=== PATIENT | male | born 1930 | race Caucasian/White ===

== ENCOUNTER 2018-11-18 19:53 | Emergency (ER) | payer MEDICARE ==
--- NOTE | 2018-11-18 20:25 | ED ---
Lower Extremity - HPI Summary HPI Summary: 88 yo male presents to [facility] ED accompanied by his and son. Pt tells me that he has been having right knee pain for the last few weeks. About 3 weeks ago his right knee buckled and "gave out" on him and he fell onto his knees - this increased his pain. Today around 1700 he was walking and felt his knee buckle again - did not fall, but has had pain since that time. He states that he is unable to weight bear or ambulate. Prior to this injury, he was ambulatory without an assisting device. He has not taken anything OTC for his discomfort. He does have an extensive history with his right knee - including several surgical repairs requiring plates and screws to his proximal tibia. He denies numbness or tingling. His states he does not take any daily medications. - History of Current Complaint Chief Complaint: EDExtremityLower Stated Complaint: FELL AND KNEE POPPED OUT PER PT Time Seen by Provider: 11/18/18 20:25 Hx Obtained From: Patient Severity Initially: Mild Severity Currently: Mild Pain Intensity: 3 Pain Scale Used: 0-10 Numeric - Allergies/Home Medications Allergies/Adverse Reactions: Allergies Allergy/AdvReac Type Severity Reaction Status Date / Time No Known Allergies Allergy Verified 11/18/18 20:02 PMH/Surg Hx/FS Hx/Imm Hx Endocrine/Hematology History: Denies: Hx Anticoagulant Therapy, Hx Diabetes Cardiovascular History: Denies: Hx Angina, Hx Atrial Fibrillation, Hx Hypertension Respiratory History: Denies: Hx Asthma, Hx Chronic Obstructive Pulmonary Disease (COPD) History: Denies: Hx Dialysis Musculoskeletal History: Reports: Hx Orthopedic Injury - right knee, crushed heel, broken ankle, Other Musculoskeletal History - right knee, right ankle and right heel fx's Sensory History: Reports: Hx Contacts or Glasses - does not like to wear, reading glasses, Hx Hearing Aid - bilateral Opthamlomology History: Reports: Hx Contacts or Glasses - does not like to wear , reading glasses Neurological History: Denies: Hx CVA, Hx Headaches, Hx Migraine - Surgical History Surgical History: Yes Surgery Procedure, Year, and Place: 15 years ago Right knee surgery. 1984 right crushed heal. 1999 right ankle Hx Anesthesia Reactions: No Infectious Disease History: No Infectious Disease History: Denies: Traveled Outside the [place] in Last 30 Days - Family History Known Family History: Positive: Unknown - Social History Lives: With Family Alcohol Use: Rare Substance Use Type: Reports: None Smoking Status (MU): Former Smoker Review of Systems Constitutional: Negative Cardiovascular: Negative Respiratory: Negative Gastrointestinal: Negative Genitourinary: Negative Musculoskeletal: Other - Right knee pain Skin: Negative Neurological: Negative Psychological: Normal All Other Systems Reviewed And Are Negative: No Physical Exam - Summary Physical Exam Summary: GENERAL: NAD. WDWN. No pain distress. SKIN: No rashes, sores, or open wounds. HEENT: Head: AT/NC Eyes: PERRLA. EOM intact. NECK: Supple. Nontender. No lymphadenopathy. CHEST: CTAB. No r/r/w. No accessory muscle use. Breathing comfortably and in no distress. CV: ?PVCs. Pulses intact. Brisk cap refill. MSK: RIGHT KNEE: Mild edema and chronic bony changes. NTTP. Keeps knee in ~ 10deg of extension due to pain. He is unable to flex due to pain. Patella and quad tendon appear intact NEURO: Alert. PSYCH: Age appropriate behavior. Triage Information Reviewed: Yes Vital Signs On Initial Exam: Initial Vitals Temp Pulse Resp BP Pulse Ox 98.6 F 108 20 126/85 95 11/18/18 19:55 11/18/18 19:55 11/18/18 19:55 11/18/18 19:55 11/18/18 19:55 Vital Signs Reviewed: Yes Diagnostics - Vital Signs Vital Signs Temp Pulse Resp BP Pulse Ox 11/18/18 19:55 98.6 F 108 20 126/85 95 - Laboratory Lab Statement: Any lab studies that have been ordered have been reviewed, and results considered in the medical decision making process. - Radiology XR knee Radiology Interpretation Completed By: Radiologist Summary of Radiographic Findings: IMPRESSION: 1. Patient is again status post ORIF of remote proximal tibial fracture. 2. No acute findings. However, the bones are diffusely demineralized which limits evaluation of fine bony detail. 3. 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 4. Small joint effusion. XR right hip Radiology Interpretation Completed By: ED Physician Summary of Radiographic Findings: No acute findings XR right femur Radiology Interpretation Completed By: ED Physician Summary of Radiographic Findings: No acute findings - EKG 1 EKG Comparison: Other - Sinus tach 123. Atrial premature complex. RBBB. Compared to 05/2014. No STEMI. Read by Dr. Mallory Lower Extremity Course/Dx - Course Course Of Treatment: XRs as above. Suspect acute on chronic knee pain. Pt will be placed in a knee immobilizer and he has a walker at home - advised to use this with immobilizer and RICE. F/u with Orthopedics within the next 5 days for a recheck. Return to ED if symptoms worsen. - Diagnoses Provider Diagnoses: Right knee pain Discharge ED - Sign-Out/Discharge Documenting (check all that apply): Patient Departure Patient Received Moderate/Deep Sedation with Procedure: No - Discharge Plan Condition: Stable Disposition: HOME Patient Education Materials: Knee Pain (ED) Referrals: Addy KRISHNAMURTHY,Ronn Molina [Primary Care Provider] - Roxy Gates MD [Medical Doctor] - As Soon As Possible Additional Instructions: If you develop a fever, shortness of breath, chest pain, new or worsening symptoms - please call your PCP or go to the ED immediately. The X-Rays of your knee, hip, and thigh did not show any fractures or acute processes tonight. I recommend that you call Orthopedics at the number below to schedule an appointment within 3-5 days for a recheck of your worsening knee pain. Use the knee immobilizer as needed for discomfort Use your walker to ambulate until you can see Orthopedics May take tylenol as directed for discomfort - Billing Disposition and Condition Condition: STABLE Disposition: Home - Attestation Statements Provider Attestation: I was available for consult. This patient was seen by the NANI. The patient was not presented to, seen by, or examined by me. Keny Mallory MD
[2018-11-18 23:11] VITALS: BP 138/94
== END 2018-11-18 23:10 | disposition home or self-care (01) ==
LOC: ED 19:53
DX: M25.561 Pain in right knee (principal); Z87.891 Personal history of nicotine dependence; M17.11 Unilateral primary osteoarthritis, right knee; Z96.641 Presence of right artificial hip joint; M85.80 Other specified disorders of bone density and structure, unspecified site
CPT/HCPCS: 93005; 99282